=== PATIENT | female | born 1960 | race Hispanic/Latino ===

== ENCOUNTER 2018-07-22 11:11 | Emergency (ER) | payer OTHER ==
[~2018-07-22] VITALS: Ht 154.9 cm; Wt 90.7 kg
--- OUTSIDE RECORDS SUMMARY | 2018-07-22 11:13 | XMS REPORT | Clinical Summary ---
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 Last Filed Vital Signs Not on file Plan of Treatment Health Maintenance Due Date Last Done Comments CERVICAL CANCER SCREENING 1981 BREAST CANCER SCREENING 2010 COLON CANCER SCREENING 2010 SHINGLES VACCINES (1 of 2010 2) INFLUENZA VACCINE 01/18/2018 Results Not on fileafter 07/21/2017 Insurance Payer Benefit Subscriber ID Type Phone Address Plan / Group [employer] EXCHANGE BLUE xxxxxxxxxxxx Exchange ADVANTAGE HMO EXCH rayshawn (Home) [place] [address] Advance Directives Patient has advance care planning documents on file. For more information, ayan e contact: [facility] [address] [place] [phone]
--- OUTSIDE RECORDS SUMMARY | 2018-07-22 11:13 | XMS REPORT | Clinical Summary ---
Author Author [facility] Address Unknown Phone Unavailable Care Team Providers Care Event Decorator Name Role Phone PCP Unavailable Allergies No Known Allergies Medications No known medications Active Problems Not on file Social History Date Tobacco Use Types Packs/Day Years Used Never Smoker Smokeless Tobacco: Never Used Alcohol Use Drinks/Week oz/Week Comments No Sex Assigned at Date Recorded Not on file Industry Job Start Date Occupation Not on file Not on file Not on file Travel End Travel History Travel Start No recent travel history available. Last Filed Vital Signs Not on file Plan of Treatment Not on file Results Not on fileafter 07/21/2017 Insurance Payer Benefit Subscriber ID Type Phone Address Plan / Group [facility] xxxxxxxxxxxx HMO/POS [phone] [employer] EXCHANGE melony (Home) [place] [address]
--- NOTE | 2018-07-22 12:02 | Diagnostic Imaging Report ---
EXAMINATION: CXR 2 VIEW - HOPD INDICATION: Cough for one month ^[id number] ^[id number] COMPARISON: None FINDINGS: PA and lateral views TUBES and LINES: None. LUNGS: Lungs are well inflated. There is no evidence of pneumonia or pulmonary edema. PLEURA: No pleural effusion or pneumothorax. HEART AND MEDIASTINUM: The cardiomediastinal silhouette is unremarkable.. BONES AND SOFT TISSUES: No focal osseous lesions. Soft tissues are unremarkable. UPPER ABDOMEN: No free air under the diaphragm. There are surgical clips in the left upper quadrant from undisclosed surgery. IMPRESSION: No acute thoracic abnormality. Signed by: Dr. Jessica Andrew MD on 07/22/2018 11:59 AM
== END 2018-07-22 12:36 | disposition home or self-care (01) ==
LOC: FSED 11:11
DX: R05 Cough (principal); J20.9 Acute bronchitis, unspecified
CPT/HCPCS: 71046; 99283